=== PATIENT | male | born 1960 | race Caucasian/White ===

== ENCOUNTER 2021-11-05 19:28 | Emergency (ER) | payer BC ==
[~2021-11-05] VITALS: Ht 180.3 cm; Wt 94.0 kg
[2021-11-05 20:18] VITALS: BP 133/104
[2021-11-05] MEDS ORDERED: LIDOcaine 2% 10ml TOPICAL JELLY (Urojet) TP ONE (21:10)
== END 2021-11-05 22:28 | disposition home or self-care (01) ==
LOC: ER 19:29
DX: R33.9 Retention of urine, unspecified (principal); Z72.89 Other problems related to lifestyle; Z98.890 Other specified postprocedural states
CPT/HCPCS: 51702; 99284